=== PATIENT | female | born 1970 | race Caucasian/White ===

== ENCOUNTER 2017-05-03 02:49 | Emergency (ER) | payer MEDICAID, OTHER ==
[~2017-05-03] VITALS: Ht 180.3 cm; Wt 98.0 kg
[2017-05-03 03:00] VITALS: BP 209/112; PULSE 116; RESP 12; O2SAT 97
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
[2017-05-03 03:52] VITALS: BP 145/75; PULSE 85; RESP 16; O2SAT 98
== END 2017-05-03 06:24 | disposition home or self-care (01) ==
LOC: NEPD 02:49
DX: F10.129 Alcohol abuse with intoxication, unspecified (principal); I10 Essential (primary) hypertension; Z72.0 Tobacco use
CPT/HCPCS: 99283